=== PATIENT | male | born 1985 | race Caucasian/White ===

== ENCOUNTER 2018-12-26 19:11 | Emergency (ER) | payer BC ==
[~2018-12-26] VITALS: Ht 182.9 cm; Wt 114.3 kg
[2018-12-26 19:16] VITALS: BP 145/83
[2018-12-26] MEDS ORDERED: FIASP 100100 UNIT/1 SUBQ (19:18)
[2018-12-26] MEDS ORDERED: TOUJEO MAX300 UNIT/1 SUBQ (19:19)
[2018-12-26] MEDS ORDERED: GENTAK5 ML INTRAOCULR (19:42)
== END 2018-12-26 20:11 | disposition home or self-care (01) ==
LOC: M.ERS 19:11
DX: S05.01XA Injury of conjunctiva and corneal abrasion without foreign body, right eye, initial encounter (principal); E10.9 Type 1 diabetes mellitus without complications; W45.8XXA Other foreign body or object entering through skin, initial encounter; Y92.89 Other specified places as the place of occurrence of the external cause; Y93.89 Activity, other specified; Y99.8 Other external cause status